=== PATIENT | male | born 1945 | race Caucasian/White ===

== ENCOUNTER 2022-12-22 08:41 | Outpatient (CLI) | payer OTHER, SELFPAY ==
--- NOTE | 2023-01-19 16:30 | WPDSLEEPSTUD ---
Sleep Study Date of Study: 12/22/22 Ordering Provider: Seng Winn APRN Interpreting Physician: Gi Hayes DO Sleep Study Type: Polysomnogram Height: 1.73 m Weight: 78.018 kg Body Mass Index: 26.1 Neck Circumference (inches): 16 [place]: 2 Reason for Sleep Study Insomnia Sleep History The patient is a 77-year-old male with hypertension, neuropathy, COPD, cirrhosis, benign prostatic hyperplasia, history of tobacco use and insomnia that had a sleep study ordered for evaluation of his insomnia. The patient denies awakening from sleep short of breath. He denies awakening at night with heartburn, belching or cough. He denies snoring loudly enough that others complain. He denies having trouble sleeping when he has a cold. He denies waking up gasping for air throughout the night. He denies having breathing problems at night observed by himself or others. He denies sweating excessively at night. He denies having heart palpitations or irregular heartbeats during the night. He denies falling asleep during the day and denies falling asleep while driving. He denies sleep paralysis and cataplexy. He denies having trouble at school or work due to sleepiness. He rarely experiences vivid dreamlike scenes upon awakening or falling asleep. He denies feeling afraid of going to sleep. He denies having nightmares. He frequently remembers his dreams. He denies having thoughts racing through his mind. He denies feeling sad, depressed or anxious. He denies having muscular tension. He denies noticing parts of his body jerk. He denies kicking during the night. He denies having crawling and aching feelings in his legs as well as leg pain during the night. He denies grinding his teeth during sleep and denies awakening with morning jaw pain. He denies being bothered by pain during the day and denies being awakened by pain during the night. He denies waking up feeling stiff in the morning. He denies waking up with sore or achy muscles. He denies waking up with pain in the neck, spine or other joints. He goes to bed between 11 to 11:30 p.m. on both weekdays and weekends. It takes him 10 minutes to fall asleep. He wakes up 2-3 times throughout the night. When he awakens, he will urinate, walk around the house or go outside. Sometimes he won't be able to fall asleep until 4-6 a.m. He wakes up between 5:30-6:30 a.m. on both weekdays and weekends. He will stay in bed for 30 minutes after waking up in the morning. He currently lives alone. He does not consume any caffeinated beverages within 2 hours of bedtime. He does not engage in physical exercise before bedtime. He will read before falling asleep. He denies taking naps in the afternoon or the evening. He drinks 2 cups of caffeinated beverage per day. He is a former smoker. He consumes 1 beer after exercising. He denies recreational drug use. [facility] Past Medical History Medical History COPD (chronic obstructive pulmonary disease) FH: total abdominal hysterectomy and bilateral salpingo-oophorectomy Insomnia Lipoma of right shoulder Liver cirrhosis Muscle spasm of back Neuropathy Tobacco abuse Surgical History Surgical History History of shoulder surgery Family History Family History Mother Heart disease Hypertension Sibling Hypertension Diabetes mellitus Social History Social History Smoking status: Never smoker Alcohol intake: never Medications Home Medications Medication Instructions Recorded Confirmed Type eszopiclone 2 mg tablet 2 mg PO .hs #30 tabs 12/29/22 Rx Sleep Procedure This test was performed using the [employer] multiple channel system including EOG, EEG, submental EMG, EKG, nasal and
[2023-01-19 16:35] VITALS: BMI 26.1
== END 2022-12-23 07:39 | disposition home or self-care (01) ==
PROVIDERS: PCP Emergency Medicine; Visit Provider Nurse Practitioner Family
DX: G47.00 Insomnia, unspecified (principal); G47.9 Sleep disorder, unspecified
CPT/HCPCS: 95810

== ENCOUNTER 2023-01-22 12:32 | Outpatient (CLI) | payer OTHER, SELFPAY | END 2023-01-22 12:33 | disposition home or self-care (01) | LOC: ANHLAB 12:33 | PROVIDERS: PCP Emergency Medicine; Visit Provider Nurse Practitioner Family | DX: G47.61 Periodic limb movement disorder (principal); M25.50 Pain in unspecified joint | CPT/HCPCS: 36415; 82728 ==

== ENCOUNTER 2023-11-18 11:39 | Outpatient (CLI) | payer OTHER, SELFPAY ==
--- NOTE | ~2023-11-18 | MR_ITS ---
EXAMINATION: MR shoulder RT wo con DATE: 11/18/2023 13:01 INDICATION: PAIN IN RIGHT SHOULDER . TECHNIQUE: Magnetic resonance imaging (MRI) of the right shoulder was performed without intravenous c ontrast. Sequences included axial PD-weighted FS FSE, coronal oblique PD-weighted FS FSE and T2-weigh maura FS FSE, and sagittal oblique T2-weighted FS FSE, T2 FSE FS propeller, and T1-weighted FSE. COMPARISON: None. FINDINGS: Coracoacromial arch: Mild anterior downsloping of the type II acromion. No significant AC joint inferior osteophytosis. No significant acromial tip enthesopathy. Severe subacromial narrowing. No subcoracoid narrowing. Rotator cuff: Massive superior cuff tear with significant retraction of the supraspinatus and infraspinatus muscles . Teres minor is intact. Partial tear of the subscapularis. Biceps tendon and glenoid labrum: Medial subluxation of the long head of biceps tendon which remains intact. Large inferior glenoid lab ral cyst, with an adjacent inferior labral tear involving the anteroinferior and posterior inferior q uadrant. Fluid: Large glenohumeral joint fluid collection extending into the subacromial space, the suprascapular not ch, and the AC joint. Bones/cartilage: Ossific fragment at the AC joint may represent degenerative change or old fracture fragment. No suspi cious marrow signal. Severe degenerative change at the AC joint and moderate degenerative change at t he glenohumeral joint. IMPRESSION: Massive superior cuff tear with significant retraction of the supraspinatus and infraspinatus. Partial subscapularis tear with medial subluxation of the long head of biceps tendon. Inferior glenoid labral tear. Large glenohumeral joint effusion extending into the AC joint and suprascapular notch. 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 Reviewed, dictated and finalized at location [facility]GRAP[facility] ANGIOGRAM IMPRESSION: Massive superior cuff tear with significant retraction of the supraspinatus and infraspinatus. Partial subscapularis tear with medial subluxation of the long head of biceps t endon. Inferior glenoid labral tear. Large glenohumeral joint effusion extending into the AC joint and suprascapular notch. 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
== END 2023-11-18 11:40 | disposition home or self-care (01) ==
PROVIDERS: PCP Emergency Medicine; Visit Provider Emergency Medicine
DX: M75.101 Unspecified rotator cuff tear or rupture of right shoulder, not specified as traumatic (principal); S46.111A Strain of muscle, fascia and tendon of long head of biceps, right arm, initial encounter; S43.491A Other sprain of right shoulder joint, initial encounter; M19.011 Primary osteoarthritis, right shoulder; X58.XXXA Exposure to other specified factors, initial encounter
CPT/HCPCS: 73221

== ENCOUNTER 2024-08-12 01:16 | Day surgery (SDC) | payer OTHER, SELFPAY ==
[2024-07-24 14:42] VITALS: BMI 26.2
[2024-08-12 09:20] VITALS: BP 157/99; PULSE 84; RESP 20; TEMP 36.1; O2SAT 98; BMI 24.8
[2024-08-12] MEDS: LACTATED RINGERS 1,000 ML 150 ML IV CONT (09:30)
--- NOTE | 2024-08-12 09:59 | WPDANESEPPF ---
Anes - Initial Pre Proc Eval Procedure: Operation Date: 08/12/24 10:30 Proposed Procedures p Colonoscopy - Daniel Last MD Date/Time: 08/12/24 09:59 Surgeon: Daniel Last MD Pre Op Diagnosis: Personal history colon polyps Patient Data Age: 79 Gender: M Height: 1.73 m Weight: 74.1 kg Last Vital Signs Temp 36.1 C L 08/12/24 09:20 Pulse 84 08/12/24 09:20 Resp 20 08/12/24 09:20 BP 157/99 H 08/12/24 09:20 Pulse Ox 98 08/12/24 09:20 O2 Del Method Room Air 08/12/24 09:20 Allergies Allergy/AdvReac Type Severity Reaction Status Date / Time No Known Allergies Allergy Verified 08/12/24 09:19 Home Medications Medication Instructions Recorded Confirmed Type amlodipine 10 mg tablet 10 mg PO DAILY 05/23/23 08/12/24 History finasteride 5 mg tablet 5 mg PO DAILY 05/23/23 08/12/24 History zolpidem 12.5 mg tablet,extended 12.5 mg PO QHS insomnia 1 month 06/06/24 08/12/24 Rx release,multiphase (Ambien CR) #30 tabs irbesartan 150 mg tablet 150 mg PO DAILY 07/24/24 08/12/24 History Patient hx anesthesia problems: none Family hx anesthesia problems: none Results Review: All pre-operative results and documents have been reviewed as part of the pre-operative evaluation. [facility] Past Medical History Medical History (Updated 08/12/24 @ 10:00 by Neel Duke MD) Insomnia Lipoma of right shoulder Muscle spasm of back Neuropathy Surgical History Surgical History History of shoulder surgery Family History Family History Mother Heart disease Hypertension Sibling Hypertension Diabetes mellitus Social History Social History Smoking status: Never smoker Alcohol intake: current Drinks per week: 4 Substance use type: does not use Living arrangements: alone Anes - Eval Final PreProcedure Day of Procedure 08/12/24 09:59 Patient weight: normal Heart: regular rate and rhythm Lungs: clear to auscultation Airway: Mallampati scale class II Neurological: alert and oriented Last oral intake: >/= 8 hours ASA classification: II Emergent: no Anesthetic plan: proceed Anesthesia type and monitoring: general GIVS and standard monitoring Results Review: All pre-operative results and documents have been reviewed as part of the pre-operative evaluation. Informed Consent: The patient's anesthetic plan and its attendant risks and benefits were discussed with the patient/family/POA. Questions were solicited and answers provided to the satisfaction of the patient/family/POA.
--- NOTE | 2024-08-12 10:21 | PM.HPGS ---
History of Present Illness History of Present Illness Consent: Risks, benefits, and alternatives have been discussed and questions answered. Patient agrees to proceed with procedure. Chief complaint: Personal history colon polyps Narrative: Anurag Mckeon is a 79 year old male with colon polyp 5 years ago Review of Systems Review of Systems: All systems reviewed & are unremarkable except as noted in HPI and below PMFSH Past Medical History Medical History (Updated 08/12/24 @ 10:22 by Daniel Last MD) Colon polyp Insomnia Lipoma of right shoulder Muscle spasm of back Neuropathy Surgical History Surgical History History of shoulder surgery Family History Family History Mother Heart disease Hypertension Sibling Hypertension Diabetes mellitus Social History Social History Smoking status: Never smoker Alcohol intake: current Drinks per week: 4 Substance use type: does not use Living arrangements: alone Meds Home Medications and Allergies Home Medications Medication Instructions Recorded Confirmed Type amlodipine 10 mg tablet 10 mg PO DAILY 05/23/23 08/12/24 History finasteride 5 mg tablet 5 mg PO DAILY 05/23/23 08/12/24 History zolpidem 12.5 mg tablet,extended 12.5 mg PO QHS insomnia 1 month 06/06/24 08/12/24 Rx release,multiphase (Ambien CR) #30 tabs irbesartan 150 mg tablet 150 mg PO DAILY 07/24/24 08/12/24 History Allergies Allergy/AdvReac Type Severity Reaction Status Date / Time No Known Allergies Allergy Verified 08/12/24 09:19 Vital Signs Vital Signs - 24 hr 08/12/24 09:20 Temperature 96.9 F L Pulse Rate 84 Respiratory Rate 20 Blood Pressure 157/99 H Pulse Oximetry 98 Oxygen Delivery Room Air Exam Const: General: comfortable and no acute distress HENMT: Face/Nose/Sinus: Normal nares present Eyes: General: appearance normal, both eyes and all related structures Neck: Neck: no JVD Resp: Auscultation: clear to auscultation bilaterally Cardio: Rate: regular rate Rhythm: regular rhythm GI: Inspection: non-distended GI Palp: Yes Soft to palpation Skin: General skin exam: normal color Neuro: General: gait normal Speech: normal speech Extrem: General: normal to inspection Psych: Mental Status: mental status grossly normal Assessment and Plan Assessment and plan (1) Colon polyp: Code(s): K63.5 - Polyp of colon Status: Acute Assessment and Plan: colonoscopy
[2024-08-12 10:45] VITALS: BP 113/68; PULSE 72; RESP 24; O2SAT 98
[2024-08-12 10:55] VITALS: BP 121/59; PULSE 71; RESP 21; O2SAT 99
[2024-08-12 11:05] VITALS: BP 134/77; PULSE 66; RESP 22; O2SAT 100
== END 2024-08-12 11:14 | disposition home or self-care (01) ==
PROVIDERS: PCP Emergency Medicine; Referring Provider Emergency Medicine; Visit Provider Internal Medicine Gastroenterology
PROC: 0DJD8ZZ Inspection of Lower Intestinal Tract, Via Natural or Artificial Opening Endoscopic (ICD-10-PCS; CPT 45378; principal; 2024-08-12 10:30)
DX: Z12.11 Encounter for screening for malignant neoplasm of colon (principal); D12.3 Benign neoplasm of transverse colon; K64.8 Other hemorrhoids; G47.00 Insomnia, unspecified; Z98.890 Other specified postprocedural states; Z86.0100 Personal history of colon polyps, unspecified; Z82.49 Family history of ischemic heart disease and other diseases of the circulatory system
CPT/HCPCS: 45385; 88305; J2003; J2704; J7120